=== PATIENT | male | born 1980 | race Caucasian/White ===

== ENCOUNTER → 2019-05-13 08:33 | Outpatient (BNVA) | payer SELFPAY | PROVIDERS: Family Provider Nurse Practitioner; PCP Nurse Practitioner; Visit Provider Nurse Practitioner Psychiatric/Mental Health | DX: F43.12 Post-traumatic stress disorder, chronic (principal); F15.11 Other stimulant abuse, in remission; Z79.899 Other long term (current) drug therapy | CPT/HCPCS: 99214 ==

== ENCOUNTER 2019-11-21 12:30 | Emergency (ER) | payer SELFPAY ==
--- NOTE | 2019-11-21 12:54 | XR_ITS ---
WS: [id number] Portable AP upright chest, 11/21/2019 Clinical Data: SOB Comparison: PA and lateral chest, 07/31/2013. Findings: No nodules, masses or effusions are seen. The heart is normal. The pulmonary vascularity is not increased. No pneumonia or pneumothorax is seen. There are decorative items overlying the lower portion of the right and left chest. XR/XR chest 1V portable [id number] Impression: Negative chest.
[2019-11-21 12:56] VITALS: BP 145/73; PULSE 85; RESP 16; TEMP 36.8; O2SAT 95; BMI 25.8
[2019-11-21 13:06] VITALS: O2SAT 95
--- NOTE | 2019-11-21 13:22 | PC.NURSE ---
pt swabbed for COVID 19. pt placed on droplet precautions
[2019-11-21 13:28] LABS: Add Urine Microscopic? NO
[2019-11-21 13:38] LABS: Amphetamines Screen Urine Negative (Negative); Barbiturates Screen Urine Negative (Negative); Benzodiazepines Screen Urine Negative (Negative); Bilirubin Urine Neg (NEGATIVE); Blood Urine Neg (Negative); Cocaine Screen Urine Negative (Negative); Glucose Urine UA Norm (Normal); Ketones Urine Negative (Negative); Leukocyte Esterase Urine Negative (Negative); Nitrate Urine Negative (Negative); Opiate Screen Urine Negative (Negative); PCP Screen Urine Negative (Negative); Protein Urine Neg (Negative); Specific Gravity, Urine 1.015 (1.005-1.030); THC Screen Urine Positive (Negative); Urine Appearance Clear (CLEAR); Urine Color Yellow (Yellow); Urobilinogen Urine Neg (Negative); pH Urine 8 (5-7)
[2019-11-21 13:48] LABS: SARS Covid-2 Antigen Negative (Negative)
--- NOTE | 2019-11-21 13:59 | W.ED.GENADLT ---
HPI - General Adult General: Chief complaint: General Medical Stated complaint: COVID sympthom, Upper abd pain Time Seen by Provider: 11/21/19 12:35 Source: patient Mode of arrival: ambulatory Limitations: no limitations History of Present Illness: HPI narrative: Patient is a 39-year-old gentleman who presents to the emergency department with flulike symptoms for about 2 weeks. He said he has had some cough mild difficulty breathing generalized body and joint aches and this morning developed some upper abdominal pain. He has an indirect contact with somebody who tested positive for COVID-19. He has had a history of pancreatitis in the past and we his abdominal pain this morning he was concerned about pancreatitis so he is here for evaluation. He denies nausea or vomiting. Denies any urinary symptoms. He has had a fever intermittently on and off for the last 2 weeks it has been 101. Onset (ago): week(s) (2) Associated symptoms: Reports dyspnea; Deny headache(s), rash or palpitations Review of Systems General: Reports: 10 or more systems reviewed and unremarkable except in HPI and below Const: Reports: fever(s), chills and body aches Eyes: Denies: change in vision or blurry vision ENMT: Denies: throat pain, enlarged tonsils, odynophagia, hoarseness, mouth pain or swelling of lips/tongue Card: Denies: palpitations, irregular heart rhythm, edema or swelling of feet/ankles Resp: Reports: dyspnea and non-productive cough GI: Reports: abdominal pain : Denies: flank pain, dysuria, urinary frequency, urinary urgency or urinary hesitancy Musc: Denies: neck pain, back pain or extremity swelling Skin/Breast: Denies: rash, pruritus or erythema Neuro: Denies: headache(s), numbness in extremities or weakness in extremities Endo: Denies: polyuria, polydipsia or tired all the time PFS ED PFSH: Social History Smoking and tobacco status: light tobacco smoker cigars Years smoked cigars: 27 Cigar details: 3 cigars per day Quit status (tobacco): not considering quitting Second hand smoke exposure: No Alcohol intake: former Physical Exam Const: COMMON NORMALS: no acute distress, average body habitus, patient oriented x3, no limitations, healthy appearing, alert and well nourished HENMT: COMMON NORMALS: normocephalic, atraumatic and moist oral mucous membranes HEAD & SCALP: normocephalic and atraumatic Neck/C-Spine: COMMON NORMALS: no meningeal signs and no JVD Resp: COMMON NORMALS: normal respiratory effort, No retractions, No use of accessory muscles, clear to auscultation bilaterally and percussion normal AUSCULTATION: clear to auscultation bilaterally PERCUSSION: percussion normal Cardio: COMMON NORMALS: no JVD, regular rate, regular rhythm, S1 normal heart sound present, S2 normal heart sound present, No gallops present (Cardio), No clicks present (Cardio), No murmurs present (Cardio), No rub (Cardio) and Peripheral pulses 2+ throughout RATE: regular rate RHYTHM: regular rhythm HEART SOUNDS: S1 normal heart sound present and S2 normal heart sound present PERIPHERAL PULSES: Peripheral pulses 2+ throughout GI: COMMON NORMALS: Normal to inspection, nondistended, normoactive bowel sounds present, Soft to palpation, non-tender, No hepatosplenomegaly present, no masses and no bruits PALPATION: Yes Soft to palpation and Yes No hepatosplenomegaly present : COMMON NORMALS: Yes no CVA tenderness BLADDER/KIDNEY EXAM: Yes no CVA tenderness Back/Pelvis: COMMON NORMALS: no CVA tenderness Extremity: COMMON NORMALS: normal to inspection, full ROM, capillary refill normal, no calf tenderness and no pedal edema Neuro: COMMON NORMALS: patient oriented x3 SENSORIUM/ORIENTATION: Yes alert MENINGEAL SIGNS: Yes no meningeal signs Skin: COMMON NORMALS: no rashes or lesions noted, no wounds, turgor normal, no jaundice, no petechiae and no mottling GENERAL SKIN EXAM: no rashes or lesions noted and turgor normal Course Reevaluation(s): Reevaluation #1: Discussed his lab and imaging findings with him. All negative for acute findings. Since his symptoms have been ongoing for about 2 weeks with no lab abnormalities or radiologic abnormalities I will not give him any new orders but he is to follow-up with his primary care provider for further evaluation. He may also check for the COVID antibodies to see if he is recovering from the infection if that is what it is. His primary care provider can order that. He voiced understanding and is in agreement with the plan Time: 14:42 Vital Signs: Vital signs: Vital Signs Temperature 98.2 F 11/21/19 12:56 Pulse Rate 54 L 11/21/19 14:54 Respiratory Rate 16 11/21/19 12:56 Blood Pressure 103/64 11/21/19 14:54 Pulse Oximetry 98 11/21/19 14:54 MDM - General Adult MDM Narrative: Medical decision making narrative: 39-year-old gentleman with a 2-week history of body aches joint aches, flulike symptoms and just feeling unwell. He has an indirect exposure to somebody with COVID-19 and his evaluation in the emergency department was negative including a negative rapid COVID screen. He is therefore discharged home with no new orders. Medical Records: Attestation: I reviewed the patient's medical records. Lab Data: Attestation: I reviewed the patient's lab results. Labs: Lab Results 11/21/19 11/21/19 11/21/19 Range/Units 13:20 13:21 13:21 WBC (4.0-10.0) 10^3/ uL RBC (4.1-5.3) 10^6/u L Hgb (11.7-16.6) g/dL Hct (42.0-52.0) % MCV (80-94) fL MCH (28.0-34.0) pg MCHC (30.0-36.0) g/dL RDW (12.1-15.1) % Plt Count (130-400) 10^3/c mm MPV (7.4-10.4) fL Neut % (Auto) % Lymph % (Auto) % Doddridge % (Auto) % Eos % (Auto) % Baso % (Auto) % Neut # (Auto) (1.8-7.7) 10^3/u L Lymph # (Auto) (0.8-4.8) 10^3/u L Doddridge # (Auto) (0.2-0.9) 10^3/u L Eos # (Auto) (0.0-0.8) 10^3/u L Baso # (Auto) (0.0-0.1) 10^3/u L Nucleated RBC % (a uto) % Nucleated RBCs # /100WBC Sodium (136-145) mmol/L Potassium (3.5-5.1) mmol/L Chloride (98-107) mmol/L Carbon Dioxide (22-29) mmol/L Anion Gap (5-19) BUN (6-20) mg/dL Creatinine (0.7-1.2) mg/dL GFR Calculation (90-130) mL/min Glucose (65-115) mg/dL Calculated Osmolal ity (285-295) mOsm/k g Calcium (8.5-10.5) mg/dL Total Bilirubin (0.15-1.2) mg/dL AST (0-40) U/L ALT (0-41) U/L Alkaline Phosphata se (40-130) IU/L C-Reactive Protein (0.0-4.9) mg/L Total Protein (6.6-8.7) g/dL Albumin (3.5-5.2) g/dL Globulin (1.3-4.6) g/dL Lipase (13-60) U/L Urine Color Yellow (Yellow) Urine Appearance Clear (CLEAR) Urine pH 8 H (5-7) Ur Specific Gravit y 1.015 (1.005-1.030) Urine Protein Neg (Negative) Urine Glucose (UA) Norm (Normal) Urine Ketones Negative (Negative) Urine Blood Neg (Negative) Urine Nitrate Negative (Negative) Urine Bilirubin Neg (NEGATIVE) Urine Urobilinogen Neg (Negative) mg/dL Ur Leukocyte Aleida ase Negative (Negative) Urine Opiates Scre en Negative (Negative) ng/mL Ur Barbiturates Sc reen Negative (Negative) ng/mL Ur Phencyclidine S crn Negative (Negative) ng/mL Ur Amphetamines Sc reen Negative (Negative) ng/mL U Benzodiazepines Scrn Negative (Negative) ng/mL Urine Cocaine Scre en Negative (Negative) ng/mL U Marijuana (THC) Screen Positive H (Negative) ng/mL Ethyl Alcohol (0-10) mg/dL SARS-CoV-2 Ag (Rap id) Negative (Negative) 11/21/19 11/21/19 Range/Units 14:02 14:02 WBC 6.6 (4.0-10.0) 10^3/ uL RBC 4.62 (4.1-5.3) 10^6/u L Hgb 14.4 (11.7-16.6) g/dL Hct 43.8 (42.0-52.0) % MCV 94.8 H (80-94) fL MCH 31.2 (28.0-34.0) pg MCHC 32.9 (30.0-36.0) g/dL RDW 12.1 (12.1-15.1) % Plt Count 196 (130-400) 10^3/c mm MPV 9.0 (7.4-10.4) fL Neut % (Auto) 58.2 % Lymph % (Auto) 31.5 % Doddridge % (Auto) 7.9 % Eos % (Auto) 1.2 % Baso % (Auto) 0.9 % Neut # (Auto) 3.83 (1.8-7.7) 10^3/u L Lymph # (Auto) 2.1 (0.8-4.8) 10^3/u L Doddridge # (Auto) 0.5 (0.2-0.9) 10^3/u L Eos # (Auto) 0.1 (0.0-0.8) 10^3/u L Baso # (Auto) 0.1 (0.0-0.1) 10^3/u L Nucleated RBC % (a uto) 0 % Nucleated RBCs # 0.0 /100WBC Sodium 137 (136-145) mmol/L Potassium 4.5 (3.5-5.1) mmol/L Chloride 103 (98-107) mmol/L Carbon Dioxide 29 (22-29) mmol/L Anion Gap 9.5 (5-19) BUN 11 (6-20) mg/dL Creatinine 0.8 (0.7-1.2) mg/dL GFR Calculation 107.1 (90-130) mL/min Glucose 93 (65-115) mg/dL Calculated Osmolal ity 280 L (285-295) mOsm/k g Calcium 9.4 (8.5-10.5) mg/dL Total Bilirubin 0.3 (0.15-1.2) mg/dL AST 12 (0-40) U/L ALT 9 (0-41) U/L Alkaline Phosphata se 46 (40-130) IU/L C-Reactive Protein 1.7 (0.0-4.9) mg/L Total Protein 6.7 (6.6-8.7) g/dL Albumin 4.3 (3.5-5.2) g/dL Globulin 2.4 (1.3-4.6) g/dL Lipase 20 (13-60) U/L Urine Color (Yellow) Urine Appearance (CLEAR) Urine pH (5-7) Ur Specific Gravit y (1.005-1.030) Urine Protein (Negative) Urine Glucose (UA) (Normal) Urine Ketones (Negative) Urine Blood (Negative) Urine Nitrate (Negative) Urine Bilirubin (NEGATIVE) Urine Urobilinogen (Negative) mg/dL Ur Leukocyte Aleida ase (Negative) Urine Opiates Scre en (Negative) ng/mL Ur Barbiturates Sc reen (Negative) ng/mL Ur Phencyclidine S crn (Negative) ng/mL Ur Amphetamines Sc reen (Negative) ng/mL U Benzodiazepines Scrn (Negative) ng/mL Urine Cocaine Scre en (Negative) ng/mL U Marijuana (THC) Screen (Negative) ng/mL Ethyl Alcohol < 10 (0-10) mg/dL SARS-CoV-2 Ag (Rap id) (Negative) Imaging Data^: CXR: Radiologist's impression: [place] [address] XRay Report Signed Patient: Jose L Ayala #: [id number] : 1980Acct#:[id number] Age/Sex: 39 / MADM Date: 11/21/19 Loc: ERRoom/Bed: Attending Dr: Ordering Provider/Ordering MD: Orlin Stafford MD, [facility] [place] Date of Service: 11/21/19 Procedure(s): XR chest 1V portable [id number] Accession Number(s): [id number] Report Number: [id number] WS: [id number] Portable AP upright chest, 11/21/2019 Clinical Data: SOB Comparison: PA and lateral chest, 07/31/2013. Findings: No nodules, masses or effusions are seen. The heart is normal. The pulmonary vascularity is not increased. No pneumonia or pneumothorax is seen. There are decorative items overlying the lower portion of the right and left chest. XR/XR chest 1V portable [id number] Impression: Negative chest. Dictated By:Jadyn Esqueda MD Signed By:Jadyn Esqueda MDSigned Date/Time:11/21/191327 DD/ Discharge Plan Discharge Patient Disposition: Home Clinical Impression: Viral syndrome Condition: Stable Prescriptions: Continued gabapentin 600 mg tablet 300 mg PO DAILY PRN (Reason: Pain) RF: 0 ibuprofen 800 mg tablet 800 mg PO TID PRN (Reason: pain) RF: 0 multivitamin Tablet 1 tab PO DAILY RF: 0 diphenhydramine HCl [Benadryl] 25 mg capsule 25 mg PO BID PRN (Reason: Allergy Symptoms) RF: 0 Seroquel 25 mg tablet 12.5 mg PO BEDTIME RF: 0 Discharge Orders: Discharge Order (Routine); Ordered 11/21/19 Ordered By: Orlin Stafford Referrals: Wei Mcneill, [employer] [Primary Care Provider] - 4-7 days Discharge Diet: Usual diet Discharge Activity: Increase activity as tolerated Patient Instructions: Viral Syndrome (ED) Activity Restrictions/Additional Instructions: Return for any new or worsening symptoms. Follow-up with your primary care provider within 1 week. Drink plenty of fluids to keep well-hydrated. 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
--- NOTE | 2019-11-21 14:07 | PC.NURSE ---
pt taken off of isolation precautions due to Negative result of COVID 19 swab
[2019-11-21 14:08] LABS: Basophils # 0.1 10^3/uL (0.0-0.1); Basophils % 0.9 %; Eosinophils # 0.1 10^3/uL (0.0-0.8); Eosinophils % 1.2 %; Hematocrit 43.8 % (42.0-52.0); Hemoglobin 14.4 g/dL (11.7-16.6); Lymphocytes # 2.1 10^3/uL (0.8-4.8); Lymphocytes % 31.5 %; Mean Corpuscular HGB Conc 32.9 g/dL (30.0-36.0); Mean Corpuscular Hemoglobin 31.2 pg (28.0-34.0); Mean Corpuscular Volume 94.8 fL (80-94); Monocytes # 0.5 10^3/uL (0.2-0.9); Monocytes % 7.9 %; Neutrophils # 3.83 10^3/uL (1.8-7.7); Neutrophils % 58.2 %; Nucleated Red Blood Cells % 0 %; Platelet Count 196 10^3/cmm (130-400); Red Blood Count 4.62 10^6/uL (4.1-5.3); Red Cell Distribution Width 12.1 % (12.1-15.1); White Blood Count 6.6 10^3/uL (4.0-10.0)
[2019-11-21 14:30] LABS: Alanine Aminotransferase 9 U/L (0-41); Albumin Level 4.3 g/dL (3.5-5.2); Alcohol Level < 10 mg/dL (0-10); Alkaline Phosphatase 46 IU/L (40-130); Anion Gap 9.5 (5-19); Aspartate Amino Transferase 12 U/L (0-40); Blood Urea Nitrogen 11 mg/dL (6-20); Calcium 9.4 mg/dL (8.5-10.5); Carbon Dioxide 29 mmol/L (22-29); Chloride 103 mmol/L (98-107); Creatinine Clr Calc Pharmacy 124.7993; Globulin 2.4 g/dL (1.3-4.6); Glomerular Filtration Rate 107.1 mL/min (90-130); Glucose 93 mg/dL (65-115); Lipase 20 U/L (13-60); Osmolality Calculated 280 mOsm/kg (285-295); Potassium 4.5 mmol/L (3.5-5.1); Sodium 137 mmol/L (136-145); Total Bilirubin 0.3 mg/dL (0.15-1.2); Total Protein 6.7 g/dL (6.6-8.7)
[2019-11-21 14:44] LABS: C Reactive Protein 1.7 mg/L (0.0-4.9)
[2019-11-21 14:54] VITALS: BP 103/64; PULSE 54; O2SAT 98
== END 2019-11-21 14:54 | disposition home or self-care (01) ==
PROVIDERS: Emergency Provider Family Medicine; PCP Nurse Practitioner
DX: B34.9 Viral infection, unspecified (principal); F17.210 Nicotine dependence, cigarettes, uncomplicated
CPT/HCPCS: 12345; 36415; 71045; 80053; 80306; 80307; 81003; 83690; 85025; 86140; 87426; 99282; 99283

== ENCOUNTER 2020-02-28 13:59 | Emergency (ER) | payer SELFPAY ==
[2020-02-28 14:15] VITALS: BP 122/68; PULSE 78; RESP 16; TEMP 36.3; O2SAT 98; BMI 19.8
--- NOTE | 2020-02-28 14:47 | ECG_ITS ---
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 Measurements Intervals [place] Rate: 52 P: -48 LA: 132 QRS: 80 QRSD: 92 T: 69 QT: 401 QTc: 373 Interpretive Statements SINUS BRADYCARDIA POSSIBLE RIGHT VENTRICULAR CONDUCTION DELAY [RSR (QR) IN V1/V2] Compared to ECG 02/28/2020 15:53:40 Early repolarization no longer present Electronically Signed On 02-29-2020 11:21:17 DRESSAGE JUDGE by Brian Magana M.D. [email or web address]
--- NOTE | 2020-02-28 15:24 | CTR_ITS ---
PROCEDURE INFORMATION: Exam: CT Head Without Contrast Exam date and time: 02/28/2020 3:35 PM Age: 39 years old Clinical indication: Other: Low BP syncopial episodes, weak; Additional info: Vertigo/syncope TECHNIQUE: Imaging protocol: Computed tomography of the head without contrast. Radiation optimization: All CT scans at this facility use at least one of these dose optimization techniques: automated exposure control; mA and/or kV adjustment per patient size (includes targeted exams where dose is matched to clinical indication); or iterative reconstruction. COMPARISON: CT head wo con* [id number] 03/20/2017 4:54 PM RADIATION DOSE METRICS: Total DLP (mGy-cm): 726.83 FINDINGS: Brain: Normal. No hemorrhage. Unremarkable white matter. No mass effect. Cerebral ventricles: No ventriculomegaly. Bones/joints: Unremarkable. No acute fracture. Paranasal sinuses: Visualized sinuses are unremarkable. No fluid levels. Mastoid air cells: There is trace opacity in the right mastoid air cells. The left mastoid air cells are clear. Soft tissues: Unremarkable. CT/CT head wo con* [id number] IMPRESSION: No acute intracranial abnormality. Radiation Dose CTDIVOL = (mGy): DLP = 726.83 (mGy-cm)
--- NOTE | 2020-02-28 15:44 | W.ED.GENADLT ---
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 Condition: Stable Prescriptions: New meclizine 25 mg tablet 25 mg PO TID PRN (Reason: dizziness) Qty: 30 RF: 0 gabapentin 300 mg capsule 300 mg PO TID Qty: 30 RF: 0 cyclobenzaprine 10 mg tablet 10 mg PO TID Qty: 30 RF: 0 ibuprofen 800 mg tablet 800 mg PO TID Qty: 30 RF: 0 No Action Aleve 220 mg Tablet 440 mg PO PRN RF: 0 Discharge Orders: Discharge Order (Routine); Ordered 02/28/20 Ordered By: Edvin Tellez Referrals: Wei Mcneill, YOUTH SUPPORT WORKER-C [Primary Care Provider] - Discharge Diet: Usual diet Discharge Activity: Increase activity as tolerated Patient Instructions: Labyrinthitis (ED) Activity Restrictions/Additional Instructions: Drink plenty of water. Take medications as directed. Avoid sudden movements. Take your time changing position. Follow-up with primary care in 3 to 5 days for recheck. Return to the emergency department for new concerns. Coding Level of Care Code ED Patient Support Tech for Armin Fwd Exam Comprehensive
[2020-02-28 15:54] LABS: Basophils % 0.6 %; Eosinophils # 0.1 10^3/uL (0.0-0.8); Eosinophils % 1.1 %; Hematocrit 42.5 % (42.0-52.0); Hemoglobin 13.8 g/dL (11.7-16.6); Lymphocytes % 28.1 %; Mean Corpuscular HGB Conc 32.5 g/dL (30.0-36.0); Mean Corpuscular Hemoglobin 30.3 pg (28.0-34.0); Mean Corpuscular Volume 93.2 fL (80-94); Mean Platelet Volume 9.4 fL (7.4-10.4); Monocytes # 0.4 10^3/uL (0.2-0.9); Neutrophils # 4.57 10^3/uL (1.8-7.7); Neutrophils % 64.1 %; Nucleated Red Blood Cells % 0 %; Platelet Count 188 10^3/cmm (130-400); Red Blood Count 4.56 10^6/uL (4.1-5.3); Red Cell Distribution Width 12.2 % (12.1-15.1); White Blood Count 7.1 10^3/uL (4.0-10.0)
[2020-02-28 16:05] VITALS: BP 104/61; BP 116/70; BP 95/52; PULSE 59; PULSE 60; PULSE 73
[2020-02-28 16:09] LABS: INR 1.02 (0.8-1.2)
[2020-02-28] MEDS: meclizine 25 mg tablet PO (16:09)
[2020-02-28] MEDS: sodium chloride 0.9% 1,000 ML 999 ML IV (16:13)
[2020-02-28 16:20] LABS: Troponin(5th) Baseline 6 ng/L (0-15)
[2020-02-28 16:24] LABS: Alanine Aminotransferase 14 U/L (0-41); Albumin Level 4.5 g/dL (3.5-5.2); Alkaline Phosphatase 49 IU/L (40-130); Anion Gap 10.5 (5-19); Aspartate Amino Transferase 12 U/L (0-40); Blood Urea Nitrogen 11 mg/dL (6-20); Calcium 9.1 mg/dL (8.5-10.5); Carbon Dioxide 27 mmol/L (22-29); Chloride 102 mmol/L (98-107); Creatine Phosphokinase 59 U/L (39-308); Free T4 Free Thyroxine 1.16 ng/dL (0.82-1.77); Globulin 2.1 g/dL (1.3-4.6); Glomerular Filtration Rate 124.9 mL/min (90-130); Glucose 87 mg/dL (65-115); Osmolality Calculated 281 mOsm/kg (285-295); Potassium 3.5 mmol/L (3.5-5.1); Sodium 136 mmol/L (136-145); Total Bilirubin 0.6 mg/dL (0.15-1.2); Total Protein 6.6 g/dL (6.6-8.7)
[2020-02-28 16:34] LABS: Add Urine Microscopic? YES; Bilirubin Urine Neg (Negative); Blood Urine Neg (Negative); Glucose Urine UA Norm (Normal); Ketones Urine Negative (Negative); Leukocyte Esterase Urine Negative (Negative); Nitrate Urine Negative (Negative); Protein Urine Neg (Negative); Sulfosalicylic Acid Urine Negative (Negative); Urine Appearance SL Hazy (CLEAR); Urine Color Yellow (Yellow); Urobilinogen Urine Norm (Negative); pH Urine 8 (5-7)
[2020-02-28 16:36] LABS: Amorphous Sediment Urine 1+ /hpf; Mucus Urine TRACE /hpf; Squamous Epithelial Cell Urine RARE /hpf (0-5); WBC Urine RARE /hpf (0-5)
[2020-02-28 16:37] LABS: Add Urine Culture? No
--- NOTE | 2020-02-28 16:47 | ECG_ITS ---
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 Measurements Intervals Heidrick Rate: 55 P: 46 DC: 164 QRS: 80 QRSD: 88 T: 74 QT: 378 QTc: 365 Interpretive Statements SINUS BRADYCARDIA POSSIBLE RIGHT VENTRICULAR CONDUCTION DELAY [RSR (QR) IN V1/V2] EARLY REPOLARIZATION [ST ELEVATION WITH NORMALLY INFLECTED T WAVE] No previous ECG available for comparison Electronically Signed On 02-29-2020 19:17:56 SERVER SUPPORT TECHNICIAN by Brian Magana M.D. [email or web address]
--- NOTE | 2020-02-28 17:15 | XRR_ITS ---
PROCEDURE INFORMATION: Exam: XR Chest, 1 View Exam date and time: 02/28/2020 5:16 PM Age: 39 years old Clinical indication: Dyspnea; Additional info: SOB TECHNIQUE: Imaging protocol: XR of the chest Views: 1 view. COMPARISON: CR XR chest 1V portable [id number] 11/21/2019 1:27 PM FINDINGS: Lungs: Unremarkable. No consolidation. There is unchanged hyperinflation. The pulmonary vascularity is within normal limits. Pleural space: Unremarkable. No pleural effusion. No pneumothorax. Heart/Mediastinum: Unremarkable. No cardiomegaly. Bones/joints: No acute abnormality. XR/XR chest 1V portable [id number] IMPRESSION: No acute findings.
[2020-02-28 18:05] LABS: SARS Covid-2 Antigen Negative (Negative)
[2020-02-28 18:26] LABS: Troponin 5 2HR Delta 0 ABS# (0-10)
[2020-02-28 18:37] VITALS: BP 102/65; PULSE 63; RESP 18; O2SAT 98
[2020-02-28] MEDS: ketorolac 30 mg/mL INJ IM (19:29)
[2020-02-28] MEDS: orphenadrine 30 mg/mL Inj 2 mL 60 MG IM (19:29)
[2020-02-28 19:35] VITALS: BP 120/78; PULSE 71; RESP 20; O2SAT 97
--- NOTE | 2020-03-01 09:15 | DCPLANNER ---
transplant case manager had message to schedule a follow up appointment for patient with Dr. Obrien office. transplant case manager called the office of Dr. Hill, spoke with cooperative education coordinator Nolberto Jain. transplant case manager gave clinic patients information, a follow up appointment was scheduled for Sunday, February 21, 2020 at 8:[address] Hill. transplant case manager called patient at phone number [phone], counter caser left a voicemail for patient with appointment information.
[2020-03-01 18:23] LABS: Quest SARS-CoV-2 RNA NOT DETECTED (NOT DETECTED)
--- NOTE | 2020-03-03 08:43 | PC.NURSE ---
Unable to contact the pt after 2 phone calls. pt is being sent out a notification letter.
--- NOTE | 2020-03-10 10:41 | DCPLANNER ---
Patient has a follow up appointment scheduled for Sunday, March 22, 2020 at 8:[address] Hill. Clinic will call patient with appointment information.
--- NOTE | 2020-03-26 08:06 | DCPLANNER ---
Patient had a follow up appointment scheduled for 03.22.[address] Obrien office - patient did attend appointment.
== END 2020-02-28 19:36 | disposition home or self-care (01) ==
PROVIDERS: Emergency Medicine; Nurse Practitioner Family; Emergency Provider Nurse Practitioner Family; PCP Nurse Practitioner
DX: H81.20 Vestibular neuronitis, unspecified ear (principal); G89.29 Other chronic pain; Z87.891 Personal history of nicotine dependence
CPT/HCPCS: 12345; 70450; 71045; 80053; 81001; 82550; 83735; 84439; 84484; 85025; 85610; 87040; 87426; 87635; 93005; 96372; 99282; 99284; J1885; J2360; J7040; J8597

== ENCOUNTER → 2020-03-22 08:23 | Outpatient (BNVA) | payer SELFPAY | PROVIDERS: PCP Nurse Practitioner; Visit Provider Specialist | DX: G43.711 Chronic migraine without aura, intractable, with status migrainosus (principal); R55 Syncope and collapse; R20.2 Paresthesia of skin; G89.29 Other chronic pain; E27.9 Disorder of adrenal gland, unspecified; F17.210 Nicotine dependence, cigarettes, uncomplicated | CPT/HCPCS: 99205 ==

== ENCOUNTER 2020-04-12 12:41 | Outpatient (CLI) | payer SELFPAY ==
--- NOTE | 2020-04-12 12:52 | USCV_ITS ---
Jose L Ayala Age: 39 Gender: M : 1980 Exam Date: 04/12/2020 12:50 Ordering Phys: Carleen Hill MD Technologist: Cliff Fernando [place] [facility] [place]: [place] BP: 120 / 68 HR: 73 Rhythm: Sinus Technical Quality: Fair MEASUREMENTS (Male / Female) Normal Values 2D ECHO LV Diastolic Diameter PLAX 4.1 cm 4.2 - 5.9 / 3.9 - 5.3 cm LV Systolic Diameter PLAX 2.7 cm IVS Diastolic Thickness 0.8 cm 0.6 - 1.0 / 0.6 - 0.9 cm IVS Systolic Thickness 1.2 cm LVPW Diastolic Thickness 0.9 cm 0.6 - 1.0 / 0.6 - 0.9 cm LVPW Systolic Thickness 1.1 cm LVOT Diameter 2.0 cm LV Ejection Fraction 2D Teich 46.5 % LV Ejection Fraction MOD 2C 72.0 % LV Ejection Fraction 2C AL 71.7 % LA Diameter 3.0 cm LA Width 3.3 cm LA Height 3.6 cm RA Width 3.9 cm RA Height 3.5 cm Aorta at Sinotubular Diameter 1.9 cm M-MODE LV Diastolic Diameter MM 4.2 cm 4.2 - 5.9 / 3.9 - 5.3 cm LV Systolic Diameter MM 2.8 cm LV Ejection Fraction MM Teich 62.3 % IVS Diastolic Thickness MM 0.7 cm 0.6 - 1.0 / 0.6 - 0.9 cm IVS Systolic Thickness MM 1.1 cm LVPW Diastolic Thickness MM 1.0 cm 0.6 - 1.0 / 0.6 - 0.9 cm LVPW Systolic Thickness MM 1.4 cm RV Diastolic Diameter MM 1.6 cm Aortic Annulus Diameter 2.9 cm LA Ao Ratio MM 0.9 MV E Point Septal Separation 0.7 cm DOPPLER MV Area PHT 5.0 cm squared Mitral E to A Ratio 1.5 MV E' Velocity 47.0 cm/s Mitral E to MV E' Ratio 6.0 Mitral E to LV E' Lateral Ratio 6.0 Mitral E to LV E' Septal Ratio 6.2 TR Peak Velocity 162.0 cm/s TR Peak Gradient 10.5 mmHg TV Peak E Velocity 89.0 cm/s Right Atrial Pressure 3.0 mmHg Pulmonary Artery Systolic Pressu 13.5 mmHg FINDINGS Left Ventricle Normal left ventricular cavity size. Normal left ventricular systolic function. No regional wall motion abnormalities. Left ventricular ejection fraction is estimated at 60 %. Normal diastolic function. Right Ventricle The right ventricle is normal in size and function. Right Atrium The right atrium is normal in size. Left Atrium The left atrium is normal in size. Mitral Valve Structurally normal mitral valve without significant stenosis or prolapse. There is no mitral regurgitation. Aortic Valve Structurally normal aortic valve without significant sclerosis or stenosis. There is no aortic regurgitation. Tricuspid Valve Structurally normal tricuspid valve without significant stenosis or regurgitation. Pulmonary artery systolic pressure is normal. Pulmonic Valve Structurally normal pulmonic valve without significant stenosis. There is no pulmonic regurgitation. Pericardium Normal pericardium without effusion. Aorta Normal ascending aorta dimension. CONCLUSIONS 1-Normal left ventricular cavity size. Normal left ventricular systolic function. No regional wall motion abnormalities. Left ventricular ejection fraction is estimated at 60 %. Normal diastolic function. 2-There is no pericardial effusion. 3-No significant valve abnormalities. 4-Pulmonary artery systolic pressure is within normal limits. 5-Right atrial pressure is around 5 mm of mercury. 6-There are no prior echocardiogram studies to compare. Adam Natarajan MD (Electronically Signed) Final Date: 12 April 2020 20:32 S
== END 2020-04-12 12:42 | disposition home or self-care (01) ==
LOC: RAD 12:44
PROVIDERS: PCP Nurse Practitioner; Visit Provider Specialist
DX: R55 Syncope and collapse (principal)
CPT/HCPCS: 93306

== ENCOUNTER → 2020-04-12 15:27 | Outpatient (BNVA) | payer SELFPAY | PROVIDERS: PCP Nurse Practitioner; Visit Provider Specialist | DX: R56.9 Unspecified convulsions (principal); F17.210 Nicotine dependence, cigarettes, uncomplicated | CPT/HCPCS: 95816 ==

== ENCOUNTER → 2020-04-22 08:32 | Outpatient (BNVA) | payer SELFPAY | PROVIDERS: PCP Nurse Practitioner; Visit Provider Specialist | DX: G43.711 Chronic migraine without aura, intractable, with status migrainosus (principal); G89.29 Other chronic pain; R55 Syncope and collapse; F15.11 Other stimulant abuse, in remission; F17.210 Nicotine dependence, cigarettes, uncomplicated | CPT/HCPCS: 99214 ==

== ENCOUNTER 2024-04-30 11:26 | Emergency (ER) | payer SELFPAY ==
[2024-04-30 11:39] VITALS: BP 115/76; PULSE 93; RESP 18; TEMP 36.8; O2SAT 99; BMI 19.3
[2024-04-30 12:48] LABS: Basophils % 0.6 %; Eosinophils % 0.4 %; Hematocrit 50.5 % (37-53); Lymphocytes # 1.4 10^3/uL (0.8-4.8); Lymphocytes % 28.5 %; Mean Corpuscular HGB Conc 32.7 g/dL (30-55); Mean Corpuscular Hemoglobin 29.9 pg (27-33); Mean Corpuscular Volume 91.5 fl (82-101); Mean Platelet Volume 9.4 fL (7.4-10.4); Monocytes # 0.8 10^3/uL (0.2-0.9); Monocytes % 16.8 %; Neutrophils # 2.65 10^3/uL (1.8-7.7); Neutrophils % 53.5 %; Nucleated Red Blood Cells % 0 %; Platelet Count 178 10^3/cmm (157-399); Red Blood Count 5.52 10^6/uL (3.85-5.65); Red Cell Distribution Width 12.2 % (12.1-15.1); White Blood Count 4.95 10^3/uL (3.29-11.43)
[2024-04-30 13:07] LABS: Alanine Aminotransferase 18 U/L (0-41); Albumin Level 4.7 g/dL (3.5-5.2); Alkaline Phosphatase 63 U/L (40-130); Anion Gap 15.9 (5-19); Aspartate Amino Transferase 18 U/L (0-40); Blood Urea Nitrogen 14 mg/dL (6-20); Calcium 9.7 mg/dL (8.5-10.5); Carbon Dioxide 27 mmol/L (22-29); Chloride 101 mmol/L (98-107); Creatinine Clr Calc Pharmacy 94.9369; Globulin 3.5 g/dL (1.3-4.6); Glomerular Filtration Rate 91.7 mL/min (90-130); Glucose 85 mg/dL (65-115); Lipase 24 U/L (13-60); Osmolality Calculated 288 mOsm/kg (285-295); Potassium 4.9 mmol/L (3.5-5.1); Sodium 139 mmol/L (136-145); Total Bilirubin 0.5 mg/dL (0.15-1.2); Total Protein 8.2 g/dL (6.6-8.7)
--- NOTE | 2024-04-30 13:12 | W.ED.URI ---
HPI - URI/Sore Throat General: Chief Complaint: Upper Respiratory Infection Stated Complaint: NV / rash Time Seen by Provider: 04/30/24 12:24 History of Present Illness: 43-year-old male presents emergency room complaint nausea vomiting and some loose stools. He said a rash on his chest and his back. He also did tooth it has been bothering him recently is not currently on any antibiotics. Low-grade fever at home sweats and chills. Mild night nonproductive cough. No dysuria urgency or frequency. Associated symptoms: Deny abdominal pain, chills, chest pain or fever(s) Related Data Previous Rx's Medication Instructions Recorded amoxicillin 875 mg-potassium 1 tab PO BID #20 tabs 04/30/24 clavulanate 125 mg tablet Allergies Allergy/AdvReac Type Severity Reaction Status Date / Time No Known Allergies Allergy Verified 02/15/21 08:23 Review of Systems Const: Denies: fever(s) or chills ENMT: Reports: throat pain, odynophagia, hoarseness and dental pain Card: Denies: chest pain Resp: Denies: dyspnea GI: Denies: abdominal pain : Denies: dysuria, urinary frequency or urinary urgency Musc: Denies: neck pain or back pain Skin/Breast: Reports: rash (New truncal rash) PFSH ED PFSH: Medical History Unspecified mood [affective] disorder Family History Other Cancer Diabetes Heart attack Hypertension Psychiatric illness Social History Smoking and tobacco/nicotine status: current every day tobacco/nicotine user e-cigarettes E-Cigarette Details: vaporizer device E-cig/vape details: 6% nicotine 1 pod every 2 weeks Quit status (tobacco/nicotine): not considering quitting Second hand smoke exposure: No Alcohol intake: former Substance/Drug Use: current Substance/Drug use frequency: daily Physical Exam Const: COMMON NORMALS: no acute distress GENERAL APPEARANCE: cooperative and comfortable ORIENTATION/CONSCIOUSNESS: Yes awake, Yes oriented to person, Yes oriented to place and Yes oriented to time HENMT: COMMON NORMALS: normocephalic, atraumatic and hearing grossly normal bilaterally HEAD & SCALP: normocephalic and atraumatic OTHER: Posterior drawer reddened mildly erythematous no exudate Right maxillary premolar mildly swollen at the gumline no drainage no fluctuant abscess Resp: COMMON NORMALS: normal respiratory effort, No retractions, No use of accessory muscles and clear to auscultation bilaterally AUSCULTATION: clear to auscultation bilaterally Cardio: COMMON NORMALS: regular rate, regular rhythm and No murmurs present (Cardio) RATE: regular rate RHYTHM: regular rhythm GI: COMMON NORMALS: Soft to palpation and No hepatosplenomegaly present AUSCULTATION: Yes normoactive bowel sounds PALPATION: Yes Soft to palpation, No Tenderness to palpation present (GI), No Guarding due to palpation present (GI) and Yes No hepatosplenomegaly present Extremity: COMMON NORMALS: normal to inspection, capillary refill normal, no clubbing, cyanosis or edema, no calf tenderness and no pedal edema Neuro: SENSORIUM/ORIENTATION: Yes oriented to person, Yes oriented to place and Yes oriented to time Skin: COMMON NORMALS: no rashes or lesions noted GENERAL SKIN EXAM: no rashes or lesions noted Course Vital Signs: Vital signs: Vital Signs Temperature 98.3 F 04/30/24 11:39 Pulse Rate 62 04/30/24 14:34 Respiratory Rate 14 04/30/24 14:34 Blood Pressure 110/86 04/30/24 14:34 Pulse Oximetry 96 04/30/24 14:34 Oxygen Delivery Me thod Room Air 04/30/24 13:14 MDM - URI/Sore Throat Medical Decision Making Treat with Augmentin 875 1 p.o. twice daily 10 days strongly encourage patient to follow-up with dentist for definitive care. This will also cover if he does have a strep. Medical Records I reviewed the patient's medical records. Lab Data I reviewed the patient's lab results. 04/30/24 12:29 04/30/24 12:29 Radiology Impressions Chest X-Ray 04/30/24 13:22 Impression: Negative chest. Laboratory Results WBC 4.95 10^3/uL (3.29-11.43) 04/30/24 12:29 RBC 5.52 10^6/uL (3.85-5.65) 04/30/24 12:29 Hgb 16.50 g/dL (11.27-16.99) 04/30/24 12: Hct 50.5 % (37-53) 04/30/24 12: MCV 91.5 fl (82-101) 04/30/24 12: MCH 29.9 pg (27-33) 04/30/24 12: MCHC 32.7 g/dL (30-55) 04/30/24: RDW 12.2 % (12.1-15.1) 04/30/24 12: Plt Count 178 10^3/cmm (157-399) 04/30/24 12: MPV 9.4 fL (7.4-10.4) 04/30/24 12: Neut % (Auto) 53.5 % 04/30/24 12: Lymph % (Auto) 28.5 % 04/30/24: Roberts % (Auto) 16.8 % 04/30/24: Eos % (Auto) 0.4 % 04/30/24 12: Baso % (Auto) 0.6 % 04/30/24 12: Neut # (Auto) 2.65 10^3/uL (1.8-7.7) 04/30/24: Lymph # (Auto) 1.4 10^3/uL (0.8-4.8) 04/30/24: Roberts # (Auto) 0.8 10^3/uL (0.2-0.9) 04/30/24: Eos # (Auto) 0.0 10^3/uL (0.0-0.8) 04/30/24 12: Baso # (Auto) 0.0 10^3/uL (0.0-0.1) 04/30/24: Nucleated RBC % (auto) 0 % 04/30/24: Nucleated RBCs # 0.0 /100WBC 04/30/24 12: Sodium 139 mmol/L (136-145) 04/30/24 12: Potassium 4.9 mmol/L (3.5-5.1) 04/30/24: Chloride 101 mmol/L (98-107) 04/30/24 12: Carbon Dioxide 27 mmol/L (22-29) 04/30/24 12:29 Anion Gap 15.9 (5-19) 04/30/24 12:29 BUN 14 mg/dL (6-20) 04/30/24 12:29 Creatinine 0.9 mg/dL (0.7-1.2) 04/30/24 12:29 GFR Calculation 91.7 mL/min (90-130) 04/30/24 12:29 Glucose 85 mg/dL (65-115) 04/30/24 12:29 Calculated Osmolality 288 mOsm/kg (285-295) 04/30/24 12:29 Calcium 9.7 mg/dL (8.5-10.5) 04/30/24 12:29 Total Bilirubin 0.5 mg/dL (0.15-1.2) 04/30/24 12:29 AST 18 U/L (0-40) 04/30/24 12:29 ALT 18 U/L (0-41) 04/30/24 12:29 Alkaline Phosphatase 63 U/L (40-130) 04/30/24 12:29 Total Protein 8.2 g/dL (6.6-8.7) 04/30/24 12:29 Albumin 4.7 g/dL (3.5-5.2) 04/30/24 12:29 Globulin 3.5 g/dL (1.3-4.6) 04/30/24 12:29 Lipase 24 U/L (13-60) 04/30/24 12:29 No radiology studies performed this visit Discharge Plan Discharge Patient Disposition: Home Clinical Impression: Strep pharyngitis, Dental infection Condition: Stable Prescriptions: New amoxicillin-pot clavulanate 875-125 mg tablet 1 tab PO BID Qty: 20 0RF Discharge Orders: Discharge ED (Routine); Ordered 04/30/24 Ordered By: Clarke Cheek Discharge Diet: Usual diet Discharge Activity: Increase activity as tolerated Patient Instructions: Opioid Safety, Pain Management Activity Restrictions/Additional Instructions: Thank you for choosing [facility] for your healthcare needs today. It is very important that you follow up as instructed or that you return to the Emergency Department should you have concerns or if your condition changes or worsens in any way. You were seen in the emergency room with a rash nausea and vomiting. Based on your exam suspect that you have strep pharyngitis. Will start you on Augmentin 875 twice a day. The Augmentin will also cover dental infections. You should take this antibiotic for 10 days. You should follow-up to for definitive care for your dental infection with a dentist. Coding Level of Care Code ED Channel Marketing Program Manager for Armin Oliver
[2024-04-30 13:14] VITALS: BP 120/81; RESP 16; O2SAT 97
--- NOTE | 2024-04-30 13:22 | XR_ITS ---
WS: [id number] Portable AP upright chest, 04/30/2024 Clinical Data: dyspnea/cough Comparison: Portable chest, 02/28/2020 Findings: No nodules, masses or effusions are seen. The heart is normal. The pulmonary vascularity is not increased. No pneumonia or pneumothorax is seen. There are decorative items adjacent to the ches t bilaterally. XR/XR chest 1V portable [id number] Impression: Negative chest.
[2024-04-30 14:34] VITALS: BP 110/86; PULSE 62; RESP 14; O2SAT 96
== END 2024-04-30 14:36 | disposition home or self-care (01) ==
PROVIDERS: Emergency Medicine; Emergency Provider Family Medicine
DX: J02.0 Streptococcal pharyngitis (principal); K04.7 Periapical abscess without sinus; F17.210 Nicotine dependence, cigarettes, uncomplicated
CPT/HCPCS: 36415; 71045; 80053; 83690; 85025; 99284

== ENCOUNTER 2024-07-30 13:22 | Emergency (ER) | payer MEDICAID, SELFPAY ==
[2024-07-30 13:31] VITALS: BP 137/72; PULSE 72; RESP 17; TEMP 36.6; O2SAT 98; BMI 22.1
--- NOTE | 2024-07-30 14:06 | W.ED.URI ---
HPI - URI/Sore Throat General: Chief Complaint: Upper Respiratory Infection Stated Complaint: n/v/d weak Time Seen by Provider: 07/30/24 13:37 Source: patient Mode of arrival: ambulatory Limitations: no limitations History of Present Illness: 43yo male presents with sinus pressure, chills, sinus drainage, intermittent dizziness, fatigue, and nausea. Patient also reports that he has discomfort to bilateral ribs when deep breathing. Patient states his symptoms started 3 days ago. Reports he does have a history of long COVID. He did take 2 COVID tests at home, both were negative. Associated symptoms: Reports chills, nasal congestion, nausea and sinus pain; Deny chest pain or diarrhea Related Data Home Medications ?Medication ?Instructions ?Recorded ?Confirmed elderberry fruit 350 mg capsule 350 mg PO DAILY 07/30/24 07/30/24 multivit,Ca,min-iron 8 mg-folic 1 tab PO DAILY 07/30/24 07/30/24 acid 200 mcg-lycopene 600 mcg tablet (Centrum Men) Previous Rx's ?Medication ?Instructions ?Recorded amoxicillin 875 mg-potassium 1 tab PO BID #7 tabs 07/30/24 clavulanate 125 mg tablet Allergies Allergy/AdvReac Type Severity Reaction Status Date / Time No Known Allergies Allergy Verified 07/30/24 13:35 Review of Systems Const: Reports: chills ENMT: Reports: nasal congestion, post nasal drip and sinus pain Card: Denies: chest pain Resp: Denies: dyspnea GI: Reports: nausea; Denies: diarrhea or constipation PFSH ED PFSH: Medical History Unspecified mood [affective] disorder Family History Other Cancer Diabetes Heart attack Hypertension Psychiatric illness Social History Smoking and tobacco/nicotine status: current every day tobacco/nicotine user e-cigarettes E-Cigarette Details: vaporizer device E-cig/vape details: 6% nicotine 1 pod every 2 weeks Quit status (tobacco/nicotine): not considering quitting Second hand smoke exposure: No Alcohol intake: former Substance/Drug Use: current Substance/Drug use frequency: daily Physical Exam Const: COMMON NORMALS: no acute distress, patient oriented x3 and alert GENERAL APPEARANCE: cooperative ORIENTATION/CONSCIOUSNESS: Yes awake OTHER: Patient is ambulatory to the exam room unassisted. He is sitting upright on the stretcher no acute distress. He is able to give history with no difficulty. He is interactive with exam appropriately. No family is at bedside at time of exam HENMT: COMMON NORMALS: moist oral mucous membranes FACE & SINUS: sinus tenderness maxillary NOSE: No nasal discharge present TYMPANIC MEMBRANE: TM normal on the left and TM abnormal TM laterality: right Details: bulging and effusion THROAT: postnasal drainage Chest: CHEST: Yes Symmetrical chest wall rise Resp: COMMON NORMALS: normal respiratory effort, No use of accessory muscles and clear to auscultation bilaterally EFFORT & INSPECTION: Yes able to speak in complete sentences and Yes symmetric chest movement AUSCULTATION: clear to auscultation bilaterally Extremity: COMMON NORMALS: full ROM Neuro: COMMON NORMALS: patient oriented x3 SENSORIUM/ORIENTATION: Yes alert Psych: COMMON NORMALS: cooperative Course Vital Signs: Vital signs: Vital Signs Temperature 97.8 F 07/30/24 13:31 Pulse Rate 72 07/30/24 13:31 Respiratory Rate 17 07/30/24 13:31 Blood Pressure 137/72 07/30/24 13:31 Pulse Oximetry 98 07/30/24 13:31 Oxygen Delivery Me thod Room Air 07/30/24 13:31 MDM - URI/Sore Throat Medical Decision Making 43yo male presents with sinus pressure, chills, sinus drainage, intermittent dizziness, fatigue, and nausea. Patient also reports that he has discomfort to bilateral ribs when deep breathing. Patient states his symptoms started 3 days ago. Reports he does have a history of long COVID. He did take 2 COVID tests at home, both were negative. Patient is nontoxic in appearance. Vital signs are stable. Will proceed with viral testing and chest x-ray. Influenza A/B, COVID-19, and RSV not detected. Chest x-ray is grossly unremarkable. Patient's to be treated for right otitis media with Augmentin, first dose provided while in the emergency department. Recommend he increase his fluid intake and continue to monitor symptoms. Advised to follow-up with primary care, call in a few days with an update of symptoms and to discuss a recheck. Return precautions provided. Patient states understanding and has no further questions or concerns at this time. Differential Diagnosis Likely upper respiratory infection, sinusitis, viral infection, influenza and pharyngitis Lab Data I reviewed the patient's lab results. Radiology Impressions Chest X-Ray 07/30/24 14:09 IMPRESSION: 1. Negative chest. No change. Laboratory Results Influenza A (PCR) Negative (Negative) 07/30/24 14:41 Influenza Type B (PCR) Negative (Negative) 07/30/24 14:41 RSV (PCR) Negative (Negative) 07/30/24 14:41 SARS-CoV-2 (PCR) Negative (Negative) 07/30/24 14:41 All radiology interpretation(s) finalized by discharge Discharge Plan Discharge Patient Disposition: Home Clinical Impression: Acute right otitis media Condition: Stable Prescriptions: New amoxicillin-pot clavulanate 875-125 mg tablet 1 tab PO BID Qty: 7 0RF No Action Centrum Men 8 mg iron- 200 mcg-600 mcg Tablet 1 tab PO DAILY elderberry fruit 350 mg Capsule 350 mg PO DAILY Discharge Orders: Discharge ED (Routine); Ordered 07/30/24 Ordered By: Yvon Wolfe Discharge Diet: Usual diet Discharge Activity: Increase activity as tolerated Patient Instructions: Otitis Media - Adult, Nasal Rinse (ED) Activity Restrictions/Additional Instructions: Influenza A/B, COVID-19, and RSV not detected Will begin treatment for the right ear infection with Augmentin. You did receive the first dose while in the emergency department and a prescription has been sent to your pharmacy Increase your fluid intake and continue to monitor symptoms Please see provided handout with information about nasal rinses to help with the sinus congestion Follow-up with primary care, call in 1 to 2 days with an update of symptoms and to discuss to recheck Return to the emergency department if any rapid worsening symptoms and as needed Print Language: Swedish Coding Level of Care Code ED Dispensing And Measuring Optician for Armin Oliver
--- NOTE | 2024-07-30 14:09 | XR_ITS ---
WS: [id number] Exam: XR chest 1V portable [id number] Date/Time of Exam: 07/30/2024 2:13 PM Reason For Exam: Cough/congestion Comparison 04/30/2024. Lungs are fully expanded and clear. Normal cardiomediastinal silhouette. Regional bony structures are intact. Skin jewelry in place. No pleural effusions. XR/XR chest 1V portable [id number] IMPRESSION: 1. Negative chest. No change.
[2024-07-30] MEDS: ondansetron hcl ODT 4 mg Tab PO (14:40)
[2024-07-30 15:20] LABS: Influenza A NEGATIVE (Negative); Influenza B NEGATIVE (Negative); Respiratory Syncytial Virus Ce NEGATIVE (Negative); SARS-CoV-2 PCR NEGATIVE (Negative)
[2024-07-30] MEDS: amoxicillin-clav 875-125 mg Tablet 1 TAB PO (16:00)
[2024-07-30 16:07] VITALS: BP 135/88; PULSE 77; O2SAT 96
[2024-07-30 16:11] VITALS: PULSE 74; O2SAT 96
== END 2024-07-30 16:20 | disposition home or self-care (01) ==
PROVIDERS: Emergency Provider Nurse Practitioner
DX: H66.91 Otitis media, unspecified, right ear (principal); Z11.52 Encounter for screening for COVID-19; F17.290 Nicotine dependence, other tobacco product, uncomplicated
CPT/HCPCS: 71045; 87637; 99283; J9999; Q0162